=== PATIENT | male | born 1950 | race Caucasian/White ===

== ENCOUNTER 2019-05-28 13:28 | Outpatient (CLI) | payer OTHER | END 2019-05-28 23:59 | disposition home or self-care (01) | LOC: CARD DIAG 13:28 | PROVIDERS: ATTEND Orthopaedic Surgery | DX: I35.8 Other nonrheumatic aortic valve disorders (principal); I25.9 Chronic ischemic heart disease, unspecified; Z95.1 Presence of aortocoronary bypass graft; Z87.891 Personal history of nicotine dependence | CPT/HCPCS: 93306 ==